=== PATIENT | female | born 1990 | race Caucasian/White ===

== ENCOUNTER 2016-11-28 21:51 | Emergency (ER) | payer MEDICAID ==
[~2016-11-28] VITALS: Ht 165.1 cm; Wt 75.7 kg
[2016-11-28 22:00] VITALS: BP_SYST 129
[2016-11-28] MEDS ORDERED: KETOROLAC TROMETHAMINE 60 MG/2 ML VIAL IM ONE (23:00)
[2016-11-28] MEDS ORDERED: PROCHLORPERAZINE MALEATE 10 MG TABLET PO PRN (23:15)
[2016-11-28] MEDS ORDERED: ONDANSETRON 4 MG ODT TAB ONE (23:22)
[2016-11-28 23:49] VITALS: BP_SYST 121
== END 2016-11-28 23:47 | disposition home or self-care (01) ==
LOC: SED 21:51
DX: S93.602A Unspecified sprain of left foot, initial encounter (principal); X58.XXXA Exposure to other specified factors, initial encounter; Y93.89 Activity, other specified; Y99.8 Other external cause status; Y92.89 Other specified places as the place of occurrence of the external cause
CPT/HCPCS: 73630; 96372; 99284; J1885; Q0162